=== PATIENT | female | born 1935 | race Caucasian/White ===

== ENCOUNTER 2017-07-12 16:20 | Inpatient (IN) | payer OTHER, MEDICARE ==
[~2017-07-12] VITALS: Ht 149.9 cm; Wt 89.4 kg
--- NOTE | ~2017-07-12 | EKG ---
[address] [address] ELECTROCARDIOGRAM REPORT Name: DIEGO GREER Room #: 203-P ADM IN M.R.#: [id number] Admission: 07/12/17 Attend Phys: Keenan Cavazos MD Discharge: Date of : 31 Report #: [id number] THIS REPORT FOR: //name// 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
[2017-07-12 16:26] VITALS: BP 145/67
[2017-07-12 16:54] LABS: ABSOLUTE NEUTROPHILS 3.3 thou/uL (1.4-8.2); BASOPHILS 1.1 % (0.0-2.0); EOSINOPHILS 2.6 % (0.0-3.0); HEMATOCRIT 43.4 % (37.0-47.0); HEMOGLOBIN 14.1 gm/dL (12.0-15.0); MCH 26.1 pg (26.0-34.0); MCHC 32.4 g/dL (28.0-37.0); MCV 80.6 fL (80.0-100.0); MONOCYTES 10.8 % (1.0-8.0); PLATELET COUNT 164 thou/uL (150-400); POLYS 59.5 % (36.0-66.0); RBC 5.39 mil/uL (4.20-5.00); RDW 14.2 % (10.5-14.5); WBC 5.5 thou/uL (4.0-11.0)
[2017-07-12 17:00] LABS: ANION GAP 7 mmol/L (7-16); BUN 43 mg/dL (7-18); CALCIUM 10.2 mg/dL (8.5-10.1); CHLORIDE 102 mmol/L (98-107); CO2 30 mmol/L (21-32); CREATININE 2.8 mg/dL (0.6-1.0); GLUCOSE 115 mg/dL (74-106); POTASSIUM 3.8 mmol/L (3.5-5.1); SODIUM 139 mmol/L (136-145)
[2017-07-12 17:09] LABS: TROPONIN-I < 0.04 ng/mL (<0.06)
[2017-07-12] MEDS ORDERED: WELCHOL 625 MG625 MG PO (17:26)
[2017-07-12] MEDS ORDERED: ASPIR 8181 MG PO (17:27)
[2017-07-12] MEDS ORDERED: PROTONIX 20 MG20 M1 PO (17:27)
[2017-07-12] MEDS ORDERED: AVAPRO75 MG PO (17:27)
[2017-07-12] MEDS ORDERED: CRESTOR5 MG PO (17:27)
[2017-07-12] MEDS ORDERED: VITAMIN D1000 UNI1 PO (17:28)
[2017-07-12] MEDS ORDERED: TUMS PO (17:28)
[2017-07-12] MEDS ORDERED: FISH OIL 1,001000 M2 PO (17:28)
[2017-07-12] MEDS ORDERED: CENTRUM SILVER1 EAC4 PO (17:28)
[2017-07-12] MEDS ORDERED: ARNUITY ELLIP100 MCG INH (17:29)
[2017-07-12 17:55] LABS: ALBUMIN 4.1 g/dL (3.4-5.0); DIRECT BILIRUBIN 0.4 mg/dL (<0.1-0.3); TOTAL BILIRUBIN 2.2 mg/dL (<0.1-1.0); TOTAL PROTEIN 7.6 g/dL (6.4-8.2)
[2017-07-12 18:27] VITALS: BP 131/62
[2017-07-12 19:09] VITALS: BP 141/59
[2017-07-12 20:03] VITALS: BP 139/62
[2017-07-13 00:05] VITALS: BP 138/56
[2017-07-13 04:09] LABS: ALBUMIN 3.4 g/dL (3.4-5.0); CALCIUM 9.1 mg/dL (8.5-10.1); CREATININE 2.4 mg/dL (0.6-1.0); PHOSPHORUS 3.5 mg/dL (2.5-4.9); POTASSIUM 3.7 mmol/L (3.5-5.1)
[2017-07-13 04:11] VITALS: BP 122/61
[2017-07-13 05:36] LABS: HEMOGLOBIN 12.8 gm/dL (12.0-15.0); MCV 81.3 fL (80.0-100.0); RBC 4.92 mil/uL (4.20-5.00); RDW 14.4 % (10.5-14.5); WBC 4.4 thou/uL (4.0-11.0)
[2017-07-13 09:32] VITALS: BP 148/79
[2017-07-13 12:12] VITALS: BP 139/71
[2017-07-13 16:24] VITALS: BP 137/60
[2017-07-13 20:01] VITALS: BP 115/53
[2017-07-14 07:30] VITALS: BP 131/62
[2017-07-14 07:51] LABS: CALCIUM 9.3 mg/dL (8.5-10.1); CREATININE 1.9 mg/dL (0.6-1.0); POTASSIUM 4.2 mmol/L (3.5-5.1)
[2017-07-14 11:24] VITALS: BP 131/62
[2017-07-14 19:52] VITALS: BP 126/68
[2017-07-15 07:42] LABS: CALCIUM 9.1 mg/dL (8.5-10.1); CREATININE 1.7 mg/dL (0.6-1.0); POTASSIUM 3.9 mmol/L (3.5-5.1)
[2017-07-15 07:59] VITALS: BP 153/86
== END 2017-07-15 10:24 | disposition home or self-care (01) | DRG 683 ==
LOC: ER 16:20 → EROBS 17:51 → 2N 17:51 → SICU 07-13 16:43
PROVIDERS: Emergency Medicine; Hospitalist
DX: N17.0 Acute kidney failure with tubular necrosis (principal); S22.31XA Fracture of one rib, right side, initial encounter for closed fracture; I13.0 Hypertensive heart and chronic kidney disease with heart failure and stage 1 through stage 4 chronic kidney disease, or unspecified chronic kidney disease; I95.1 Orthostatic hypotension; E86.0 Dehydration; E78.5 Hyperlipidemia, unspecified; E11.22 Type 2 diabetes mellitus with diabetic chronic kidney disease; N18.9 Chronic kidney disease, unspecified; I25.10 Atherosclerotic heart disease of native coronary artery without angina pectoris; I50.9 Heart failure, unspecified; K21.9 Gastro-esophageal reflux disease without esophagitis; Z60.2 Problems related to living alone; X58.XXXA Exposure to other specified factors, initial encounter; E78.00 Pure hypercholesterolemia, unspecified; J45.909 Unspecified asthma, uncomplicated; Z90.710 Acquired absence of both cervix and uterus; Z79.899 Other long term (current) drug therapy; Z90.13 Acquired absence of bilateral breasts and nipples; Z85.3 Personal history of malignant neoplasm of breast; Z90.49 Acquired absence of other specified parts of digestive tract; Z79.82 Long term (current) use of aspirin; Z98.61 Coronary angioplasty status; Z85.59 Personal history of malignant neoplasm of other urinary tract organ; Z85.828 Personal history of other malignant neoplasm of skin; Y93.89 Activity, other specified; Y92.89 Other specified places as the place of occurrence of the external cause; Y99.8 Other external cause status
CPT/HCPCS: 10081; 15002

== ENCOUNTER 2018-05-23 13:14 | Inpatient (IN) | payer OTHER, MEDICARE ==
[~2018-05-23] VITALS: Ht 149.9 cm; Wt 79.8 kg
--- NOTE | ~2018-05-23 | HC ---
[facility] [place] [place] [address] CONSULTATION Name: DIEGO GREER Room #: 215-P ADM IN M.R.#: [id number] Admission: 05/23/18 ������������������ Attend Phys: Brayden Sotelo MD Discharge: ������������������ Date of : 33 Report #: [id number] THIS REPORT FOR: //name// CC: Brayden Sotelo FAM unknown Physician staff REASON FOR CONSULTATION: Chest pains. HISTORY OF PRESENT ILLNESS: The patient is an 83-year-old woman who follows closely through our office with Dr. Burt. She has history of coronary artery disease with medicated stenting of the circumflex in 2008, dyslipidemia, diabetes, and reflux disease. Last night, around 10:00, she experienced a midsternal chest tightness or pressure. This radiated to her right shoulder and upper back. She thought that this originally was reflux. She went to sleep with the pain and awakened pain-free, although throughout the day the pain recurred and she presented to the Emergency Department. Cardiac enzymes have been normal. EKG demonstrated nonspecific ST segment abnormality. Her symptom prior to her stenting procedure many years ago was shortness of breath. Her last stress study was in 12/2016 and nonischemic. She has a history of an echocardiogram performed in our office on 04/15/2018, EF 55-60% with left atrial enlargement, moderate mitral annular calcification and a pulmonary artery pressure of 50 mmHg. She has had no neurologic symptoms from the standpoint of her moderate carotid disease. She denies orthopnea, paroxysmal nocturnal dyspnea, or lower extremity edema. ALLERGIES: There are no known drug allergies. MEDICATIONS: Aspirin 81 mg daily, fish oil, Ellipta inhaler, Protonix 40 mg twice daily, rosuvastatin 20 mg daily. PAST MEDICAL HISTORY: Medical records have been reviewed and include history of endometrial cancer, breast cancer, cataract excision, cholecystectomy, herniorrhaphy, rotator cuff repair, skin cancer excision. SOCIAL HISTORY: She has never been a smoker, lives independently. FAMILY HISTORY: Notable for cancer. REVIEW OF SYSTEMS: All systems negative except as that noted above. PHYSICAL EXAMINATION: GENERAL: Reveals a pleasant elderly woman in no distress. VITAL SIGNS: Blood pressure is 147/74, heart rate of 59 and regular. She is afebrile. 4 feet 11 inches tall, 200 pounds weight. HEENT: There are neither xanthelasma, subcutaneous xanthomata, oral mucosal or digital cyanosis or kyphoscoliosis present. [address] [address] CONSULTATION Name: DIEGO GREER Room #: 215-P [facility] IN .R.#: [id number] Admission: 05/23/18 ������������������ Attend Phys: Brayden Sotelo MD Discharge: ������������������ Date of : 33 Report #: [id number] CHEST: Clear to auscultation and percussion. CARDIAC: Regular rate and rhythm with normal S1, S2. No murmurs or rubs. ABDOMEN: Soft and nontender. EXTREMITIES: Without edema. Radial pulses are 2+. NEUROLOGIC: She is alert with a nonfocal exam. LABORATORY DATA: Sodium 144, potassium 3.3, creatinine 1.6 which is at or near her baseline. White count 4.9, hemoglobin 13, hematocrit 40, platelet count 176. Chest x-ray is normal, mild cardiomegaly. IMPRESSION: 1. Chest pain of uncertain etiology, rule out acute coronary syndrome. 2. Coronary disease with remote medicated stenting of the circumflex. 3. Hypertension. 4. Diabetes. 5. Dyslipidemia. 6. Chronic kidney disease. RECOMMENDATIONS: 1. Serial cardiac enzymes. 2. Pharmacologic stress testing. 3. Further thoughts and plans will be forthcoming based on full completion of the database and based on her clinical course. Thank you for asking me to participate in her care. ��������������������������������������������� ���������������������������������������� By: ��������������������������������������������� 1706 1223 Agusto Schwarz MD, FACC /nt
[~2018-05-23 13:14] MED LIST: ARNUITY ELLIP100 MCG INH; ASPIR 8181 MG PO; AVAPRO75 MG PO; CENTRUM SILVER1 EAC4 PO; CRESTOR5 MG PO; FISH OIL 1,001000 M2 PO; PROTONIX 20 MG20 M1 PO; TUMS PO; VITAMIN D1000 UNI1 PO; WELCHOL 625 MG625 MG PO
[2018-05-23 13:15] VITALS: BP 168/58
[2018-05-23] MEDS ORDERED: MIRALAX17 GM PO (13:33)
[2018-05-23 13:47] LABS: HEMATOCRIT 40.9 % (37.0-47.0); HEMOGLOBIN 13.2 gm/dL (12.0-15.0); MCH 26.1 pg (26.0-34.0); MCHC 32.3 g/dL (28.0-37.0); MCV 80.7 fL (80.0-100.0); RBC 5.07 mil/uL (4.20-5.00); RDW 16.6 % (10.5-14.5); WBC 4.9 thou/uL (4.0-11.0)
[2018-05-23 13:55] LABS: ANION GAP 9 mmol/L (7-16); BUN 13 mg/dL (7-18); CALCIUM 9.7 mg/dL (8.5-10.1); CHLORIDE 106 mmol/L (98-107); CO2 29 mmol/L (21-32); CREATININE 1.6 mg/dL (0.6-1.0); GLUCOSE 97 mg/dL (74-106); POTASSIUM 3.3 mmol/L (3.5-5.1); SODIUM 144 mmol/L (136-145)
[2018-05-23 14:02] LABS: URINE BILIRUBIN NEGATIVE (Negative); URINE BLOOD TRACE (Negative); URINE CLARITY SL CLOUDY; URINE COLOR YELLOW; URINE GLUCOSE-RANDOM* NEGATIVE (Negative); URINE KETONES NEGATIVE (Negative); URINE LEUKOCYTES-REFLEX NEGATIVE (Negative); URINE NITRITE-REFLEX NEGATIVE (Negative); URINE PROTEIN (DIPSTICK) 1+ (Negative)
[2018-05-23 14:04] LABS: ALBUMIN 3.9 g/dL (3.4-5.0); SGOT 34 U/L (15-37); SGPT 21 U/L (30-65); TOTAL BILIRUBIN 1.7 mg/dL (<0.1-1.0); TOTAL PROTEIN 7.5 g/dL (6.4-8.2); TROPONIN-I <0.06 ng/mL (<0.06)
[2018-05-23 14:10] LABS: AMORPHOUS URATES Few /LPF (None Seen); BACTERIA-REFLEX 1-9 Few /HPF (None Seen); CRYSTALS None Seen /LPF (None Seen); SQUAMOUS 4-10 Moderate /LPF (0-3); URINE RBC None Seen /HPF (0-2); URINE WBC-REFLEX 0-5 Rare /HPF (0-5)
[2018-05-23 15:04] VITALS: BP 152/70
[2018-05-23 16:10] VITALS: BP 147/74
[2018-05-23 17:35] VITALS: BP 179/76
[2018-05-23 19:47] VITALS: BP 138/75
--- NOTE | 2018-05-24 01:24 | EKG ---
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: ROSEMARY : 1935 Requested By: Sheela Bernal Order Number: [id number] MD: Trey Lopez Measurements Intervals [place] Rate: 65 P: 39 [place]: 172 QRS: 19 QRSD: 103 T: 34 QT: 442 QTc: 460 Interpretive Statements Sinus rhythm Atrial premature complex left atrial enlargement Minimal ST depression clinical correlation suggested Compared to ECG 07/12/2017 16:26:21 Atrial premature complex(es) now present Electronically Signed On 05-24-2018 1:24:20 CDT by Trey Lopez [email or web address] ��������������������������������������������� <ELECTRONICALLY SIGNED> ���������������������������������������� By: Trey Lopez MD ��������������������������������������������� 05/24/18 0124 1328 1328 Trey Lopez MD /EPI
[2018-05-24 05:09] VITALS: BP 153/77
--- NOTE | 2018-05-24 05:23 | NUR ---
PT AMBULATING TO BATHROOM WITH STANDBY ASSIST AND IS TOLERATING WELL. DENIES NEED FOR PAIN MEDICINE. RESTING COMFORTABLY. NO NEEDS VOICED. CALL LIGHT WITHIN REACH. WILL CONTINUE TO PROVIDE FREQUENT OBSERVATION.
[2018-05-24 06:02] LABS: HEMATOCRIT 38.6 % (37.0-47.0); HEMOGLOBIN 12.1 gm/dL (12.0-15.0); MCH 25.6 pg (26.0-34.0); MCHC 31.3 g/dL (28.0-37.0); MCV 81.9 fL (80.0-100.0); RBC 4.72 mil/uL (4.20-5.00); RDW 17.4 % (10.5-14.5); WBC 3.4 thou/uL (4.0-11.0)
[2018-05-24 06:18] LABS: ANION GAP 7 mmol/L (7-16); BUN 13 mg/dL (7-18); CALCIUM 9.5 mg/dL (8.5-10.1); CHLORIDE 108 mmol/L (98-107); CO2 28 mmol/L (21-32); CREATININE 1.4 mg/dL (0.6-1.0); GLUCOSE 89 mg/dL (74-106); POTASSIUM 4.2 mmol/L (3.5-5.1); SODIUM 143 mmol/L (136-145); TROPONIN-I <0.06 ng/mL (<0.06)
[2018-05-24 07:00] VITALS: BP 140/58
--- NOTE | 2018-05-24 08:46 | EKG ---
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 : 1935 Requested By: Agusto Schwarz Order Number: [id number] MD: Agusto Schwarz Measurements Intervals [place] Rate: 55 P: 66 MN: 155 QRS: 7 QRSD: 87 T: 46 QT: 476 QTc: 456 Interpretive Statements Sinus bradycardia Otherwise no significant abnormality Compared to ECG 05/23/2018 13:28:40 Atrial premature complex(es) no longer present Electronically Signed On 05-24-2018 8:46:09 CDT by Agusto Schwarz [email or web address] ��������������������������������������������� <ELECTRONICALLY SIGNED> ���������������������������������������� By: Agusto Schwarz MD, [facility] ��������������������������������������������� 05/24/18 0846 7 7 Agusto Schwarz MD, [facility] /EPI
[2018-05-24 12:38] VITALS: BP 135/80
[2018-05-24 13:37] VITALS: BP 135/80
--- NOTE | 2018-05-24 14:09 | NUR ---
VSS SB WITH PACS, HR 50-60, LUNGS CLEAR RA SAT IS 98%. NO C/O CHEST PAIN UP IN ROOM TO BRP AND CHAIR WITH SBA, STEADY ON FEET. WILL CONTINUE TO MONITER AND CARE FOR PT PER PLAN OF CARE
[2018-05-24 16:00] VITALS: BP 141/65
--- NOTE | 2018-05-24 17:02 | NUR ---
Chart reviewed. [employer] patient independent with adls and self care. She uses no assitive device. 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 She lives in independent home, [facility]. Casemgt following for dc planning.
[2018-05-24 20:04] VITALS: BP 132/51
--- NOTE | 2018-05-24 21:47 | NUR ---
ASSUMED CARE AROUND 1900. AXOX4. ADMIT WITH CHEST PAIN. DENIES CHEST PAIN OR SOB/SOA AT THIS TIME. UPON ASSESSMENT, NOTICED RAC IV WAS BRUISED AND TENDER TO TOUCH. DISCONTINUED IV. PT REFUSED RE-INSERTION. EXPLAINED THE NECESSITY OF THE IV ACCESS. PT STILL REFUSES IV INSERTION. CALLED MEDICAL DIAGNOSTIC RADIOGRAPHER ADRIENNE OSCAR, COVERING FOR HIMS AND REPORTED. PER MEDICAL DIAGNOSTIC RADIOGRAPHER, OK TO NOT HAVE IV ACCESS AT THIS TIME. NOTIFIED PT THAT WILL NOT RE-INSERTING AN IV FOR NOW AND TO REPORT WHEN PT IS WILLING TO HAVE IV ACCESS DURING THIS SHIFT. NO S/S ACUTE DISTRESS NOTED OR REPORTED AT THIS TIME. WILL CONT TO MONITOR ANY CHANGES IN CONDITION.
[2018-05-25 05:35] VITALS: BP 141/66
[2018-05-25 08:37] VITALS: BP 147/76
[2018-05-25 10:51] VITALS: BP 135/80
[2018-05-25 11:50] VITALS: BP 135/80
--- NOTE | 2018-05-25 11:51 | NUR ---
ASSUMED CARE OF PT AT SHIFT CHANGE. ASSESSMENT CHARTED. MEDS GIVEN PER APR. PT ALERT AND ORIENTED, NO C/O PAIN, UP SBA, DENIES CHEST PAIN. VSS, NO S/SX OF CARDIAC OR RESP DISTRESS NOTED. O2 SATS WNL ON ROOM AIR. DC ORDERS ACKNOWLEDGED AND IMPLEMENTED. DC PAPERWORK DISCUSSED WITH PT, COMMUNICATES UNDERSTANDING. PT LEFT UNIT WITH DAUGHTER BY TRANSPORTER WITH ALL BELONGINGS. TELE REMOVED.
== END 2018-05-25 11:50 | disposition home or self-care (01) | DRG 205 ==
LOC: ER 13:14 → 2N 15:06 → EROBS 15:06 → 2N 16:10 → ENTRNSPT 05-25 11:38 → EDTRNSPTSTS 05-25 11:40 → 2N 05-25 11:50
PROVIDERS: Student in an Organized Health Care Education/Training Program; ADMIT Hospitalist
DX: M94.0 Chondrocostal junction syndrome [Tietze] (principal); N17.0 Acute kidney failure with tubular necrosis; N18.4 Chronic kidney disease, stage 4 (severe); N17.9 Acute kidney failure, unspecified; I25.10 Atherosclerotic heart disease of native coronary artery without angina pectoris; E11.22 Type 2 diabetes mellitus with diabetic chronic kidney disease; I12.9 Hypertensive chronic kidney disease with stage 1 through stage 4 chronic kidney disease, or unspecified chronic kidney disease; I65.23 Occlusion and stenosis of bilateral carotid arteries; M47.892 Other spondylosis, cervical region; S80.01XA Contusion of right knee, initial encounter; W18.39XA Other fall on same level, initial encounter; E78.5 Hyperlipidemia, unspecified; J45.909 Unspecified asthma, uncomplicated; K21.9 Gastro-esophageal reflux disease without esophagitis; Z90.710 Acquired absence of both cervix and uterus; Z85.3 Personal history of malignant neoplasm of breast; Z98.49 Cataract extraction status, unspecified eye; Z90.13 Acquired absence of bilateral breasts and nipples; Z90.49 Acquired absence of other specified parts of digestive tract; Z79.82 Long term (current) use of aspirin; Z95.5 Presence of coronary angioplasty implant and graft; Z82.49 Family history of ischemic heart disease and other diseases of the circulatory system; Y93.89 Activity, other specified; Y92.89 Other specified places as the place of occurrence of the external cause; Y99.8 Other external cause status
CPT/HCPCS: 10081

== ENCOUNTER → 2019-04-28 | Outpatient (CLI) | payer OTHER, MEDICARE ==
[~2019-04-28] VITALS: Ht 149.9 cm; Wt 77.1 kg
[~2019-04-28] MED LIST changes: +MECLIZINE HCL12.5 MG PO; +MIRALAX17 GM PO
--- NOTE | ~2019-04-28 | P ---
[facility] [place] [address] PROCEDURE REPORT Name: DIEGO GREER [id number] Admission: 04/28/19 Attend Phys: Hema Jernigan MD Discharge: Date of : 31 Report #: [id number] THIS REPORT FOR: cc: SHOLA - Family physician unknown FAM - Family physician unknown Hema Jernigan MD ~ CC: Suzanne Kinsey MD [facility] unknown Hema Jernigan DATE OF SERVICE: 04/28/2019 BRIEF HISTORY: The patient is an 84-year-old woman with history of colon polyps. PREOPERATIVE DIAGNOSIS: High risk screening colonoscopy due to history of colon polyps. POSTOPERATIVE DIAGNOSES: 1. Moderately severe diverticulosis coli, greater in left colon than right colon. 2. Small internal hemorrhoids. MEDICATIONS: Deep sedation with propofol per anesthesia. SPECIMEN: None. ESTIMATED BLOOD LOSS: None. PROCEDURE: Colonoscopy to cecum and terminal ileum. FINDINGS: Prior to propofol sedation, procedure of colonoscopy was discussed with the patient as well as potential risks and its complications. She indicates she understands and desires to proceed. DESCRIPTION OF PROCEDURE: With the patient in left lateral decubitus position, digital examination was completed, which revealed no abnormalities. Subsequently, the Olympus video colonoscope was introduced into the rectum, advanced under direct vision to the cecum. Done with minimal difficulty. The cecum was identified by the ileocecal valve and the appendiceal orifice. I was able to visualize the distal segment of terminal ileum, which was inspected and noted to be unremarkable. At that point, the scope was slowly withdrawn and careful circumferential views obtained. Upon slow withdrawal of the scope, the prep was good. The mucosa was within normal limits, normal vascular pattern, normal light reflex. She was noted to have a few scattered diverticula in the proximal colon. There was no endoscopic evidence of diverticulitis. The mucosa [facility] [address] [place] [address] PROCEDURE REPORT Name: GREERDIEGO Room #: REG [facility]#: [id number] Admission: 04/28/19 Attend Phys: Hema Jernigan MD Discharge: Date of : 33 Report #: [id number] was normal. No neoplastic lesions were seen. As a matter of fact, no neoplastic lesions were seen at any time during this examination. As the scope was withdrawn through the remainder of the colon, mucosa was within normal limits, normal vascular pattern, normal light reflex. In the left colon, particularly the sigmoid colon, there was moderately severe diverticular disease without endoscopic evidence of diverticulitis. The scope was withdrawn in the rectum, and upon retroflexion, moderate internal hemorrhoids were seen. Scope was withdrawn. The patient tolerated procedure well. CONDITION OF THE PATIENT UPON DISCHARGE: Following procedure, the patient drowsy, arousable and conversant. She will be discharged home when fully ambulatory. INSTRUCTIONS TO THE PATIENT AND FAMILY AT THE TIME OF DISCHARGE: No neoplastic lesions were seen on today's exam. At this point in life, there is likely to be minimal benefit from routine high risk screening colonoscopy. She should return to the care of her primary care physician and return to see me as needed. Withdrawal time from the cecum was 11 minutes 17 seconds. By: 0954 1048 Hema Jernigan MD /nt
== END | disposition home or self-care (01) ==
LOC: GI 07:44
DX: Z12.11 Encounter for screening for malignant neoplasm of colon (principal); Z86.010 Personal history of colon polyps; K57.30 Diverticulosis of large intestine without perforation or abscess without bleeding; K64.8 Other hemorrhoids; K21.9 Gastro-esophageal reflux disease without esophagitis; E11.9 Type 2 diabetes mellitus without complications; J45.909 Unspecified asthma, uncomplicated; E78.5 Hyperlipidemia, unspecified; Z98.890 Other specified postprocedural states; Z79.899 Other long term (current) drug therapy; Z85.3 Personal history of malignant neoplasm of breast; Z85.828 Personal history of other malignant neoplasm of skin; Z85.43 Personal history of malignant neoplasm of ovary; Z90.49 Acquired absence of other specified parts of digestive tract; Z98.41 Cataract extraction status, right eye; Z98.42 Cataract extraction status, left eye; Z79.82 Long term (current) use of aspirin
CPT/HCPCS: 62110; 62900

== ENCOUNTER → 2019-11-17 | Outpatient (CLI) | payer OTHER, MEDICARE | LOC: SJCVC 10:33 | PROVIDERS: ATTEND Internal Medicine Cardiovascular Disease | DX: I25.10 Atherosclerotic heart disease of native coronary artery without angina pectoris (principal); R94.31 Abnormal electrocardiogram [ECG] [EKG]; I10 Essential (primary) hypertension; E78.00 Pure hypercholesterolemia, unspecified; E11.9 Type 2 diabetes mellitus without complications; Z95.5 Presence of coronary angioplasty implant and graft; Z79.899 Other long term (current) drug therapy ==

== ENCOUNTER → 2020-10-11 | Outpatient (CLI) | payer OTHER, MEDICARE | LOC: SJCVC 11:43 | PROVIDERS: ATTEND Internal Medicine Cardiovascular Disease | DX: I25.10 Atherosclerotic heart disease of native coronary artery without angina pectoris (principal); E78.00 Pure hypercholesterolemia, unspecified; I65.23 Occlusion and stenosis of bilateral carotid arteries; I27.21 Secondary pulmonary arterial hypertension; I34.2 Nonrheumatic mitral (valve) stenosis; I12.9 Hypertensive chronic kidney disease with stage 1 through stage 4 chronic kidney disease, or unspecified chronic kidney disease; N18.4 Chronic kidney disease, stage 4 (severe); Z79.82 Long term (current) use of aspirin; Z79.899 Other long term (current) drug therapy ==